=== PATIENT | male | born 1980 | race American Indian/Alaskan Native ===

== ENCOUNTER 2017-11-09 15:07 | Emergency (ER) | payer SELFPAY ==
[2017-11-09 15:23] VITALS: BP 131/89
[2017-11-09] MEDS ORDERED: CLEOCIN PO ONE (19:56)
[2017-11-09] MEDS ORDERED: MOTRIN PO ONE (19:57)
[2017-11-09] MEDS ORDERED: VEETIDS PO ONE (19:57)
[2017-11-09] MEDS ORDERED: ULTRAM PO ONE (19:57)
--- NOTE | 2017-11-09 20:01 | Emergency Department Report ---
ED General Adult HPI - General Chief complaint: Dental/Oral Stated complaint: SWOLLEN FACE Time Seen by Provider: 11/09/17 19:45 Source: patient Mode of arrival: Ambulatory Limitations: No Limitations - History of Present Illness Initial comments: Patient complains of right facial swelling and pain for the last 4-5 days. Patient states that he has a bad tooth in that region and periodically he gets swelling to the right side of his face was normally resolves on his own but this time it didn't. Patient denies headache, fever, or issues with seeing. -: Gradual Location: face, mouth Radiation: non-radiation Severity scale (0 -10): 4 Quality: aching Consistency: constant Improves with: none Worsens with: none Associated Symptoms: denies other symptoms Treatments Prior to Arrival: none - Related Data Previous Rx's Medication Instructions Recorded Last Taken Type Clindamycin [Clindamycin CAP] 150 mg PO Q8HR 7 Days #56 capsule 11/09/17 Unknown Rx Ibuprofen [Motrin] 800 mg PO Q8HR PRN #30 tablet 11/09/17 Unknown Rx Penicillin V Potassium 500 mg PO TID #30 tablet 11/09/17 Unknown Rx traMADol [Ultram] 50 mg PO Q6HR PRN #20 tablet 11/09/17 Unknown Rx Allergies Allergy/AdvReac Type Severity Reaction Status Date / Time No Known Allergies Allergy Verified 11/09/17 15:20 ED Review of Systems ROS: Stated complaint: SWOLLEN FACE Other details as noted in HPI Comment: All other systems reviewed and negative Constitutional: denies: chills, fever Eyes: denies: eye pain, eye discharge, vision change ENT: dental pain. denies: ear pain, throat pain Respiratory: denies: cough, shortness of breath, wheezing Cardiovascular: denies: chest pain, palpitations Endocrine: no symptoms reported Gastrointestinal: denies: abdominal pain, nausea, diarrhea Genitourinary: denies: urgency, dysuria Musculoskeletal: denies: back pain, joint swelling, arthralgia Skin: denies: rash, lesions Neurological: denies: headache, weakness, paresthesias Psychiatric: denies: anxiety, depression Hematological/Lymphatic: denies: easy bleeding, easy bruising ED Past Medical Hx - Past Medical History Previous Medical History?: No - Surgical History Past Surgical History?: No - Social History Smoking Status: Current Some Day Smoker Substance Use Type: None - Medications Home Medications: Home Medications Medication Instructions Recorded Confirmed Last Taken Type Clindamycin [Clindamycin CAP] 150 mg PO Q8HR 7 Days #56 capsule 11/09/17 Unknown Rx Ibuprofen [Motrin] 800 mg PO Q8HR PRN #30 tablet 11/09/17 Unknown Rx Penicillin V Potassium 500 mg PO TID #30 tablet 11/09/17 Unknown Rx traMADol [Ultram] 50 mg PO Q6HR PRN #20 tablet 11/09/17 Unknown Rx ED Physical Exam - General Limitations: No Limitations General appearance: alert, in no apparent distress - Head Head exam: Present: atraumatic, normocephalic - Eye Eye exam: Present: normal appearance - ENT ENT exam: Present: mucous membranes moist, other (patient has tenderness to palpation of the right maxillary area. There is some inflammation and swelling of that area as well. Intraorally the patient has poor dental hygiene and multiple teeth being decayed to the root) - Neck Neck exam: Present: normal inspection - Respiratory Respiratory exam: Present: normal lung sounds bilaterally. Absent: respiratory distress - Cardiovascular Cardiovascular Exam: Present: regular rate, normal rhythm. Absent: systolic murmur, diastolic murmur, rubs, gallop - GI/Abdominal GI/Abdominal exam: Present: soft, normal bowel sounds - Rectal Rectal exam: Present: deferred - Extremities Exam Extremities exam: Present: normal inspection - Back Exam Back exam: Present: normal inspection - Neurological Exam Neurological exam: Present: alert, oriented X3, CN II-XII intact, other (no entrapment of extraoccular muscles on exam). Absent: motor sensory deficit - Psychiatric Psychiatric exam: Present: normal affect, normal mood - Skin Skin exam: Present: warm, dry, intact, normal color. Absent: rash ED Course Vital Signs 11/09/17 15:20 Temperature 98.9 F Pulse Rate 86 Respiratory 16 Rate Blood Pressure 131/89 O2 Sat by Pulse 97 Oximetry ED Medical Decision Making - Medical Decision Making Discussed further workup with patient but he politely declined stating were rather try a prescription at home first and if things do not get better he will come back Critical care attestation.: If time is entered above; I have spent that time in minutes in the direct care of this critically ill patient, excluding procedure time. ED Disposition Clinical Impression: Odontalgia, Facial swelling Disposition: DC-01 TO HOME OR SELFCARE Is pt being admited?: No Does the pt Need Aspirin: No Condition: Stable Instructions: Toothache (ED) Additional Instructions: return if worse Prescriptions: Clindamycin [Clindamycin CAP] 150 mg PO Q8HR 7 Days #56 capsule Ibuprofen [Motrin] 800 mg PO Q8HR PRN #30 tablet PRN Reason: pain Penicillin V Potassium 500 mg PO TID #30 tablet traMADol [Ultram] 50 mg PO Q6HR PRN #20 tablet PRN Reason: Pain Referrals: PRIMARY CARE, [Primary Care Provider] - 3-5 Days [facility] [Outside] - 3-5 Days Time of Disposition: 20:11
== END 2017-11-09 20:30 | disposition home or self-care (01) ==
LOC: ED 15:07
DX: K08.89 Other specified disorders of teeth and supporting structures (principal); R22.0 Localized swelling, mass and lump, head; F17.200 Nicotine dependence, unspecified, uncomplicated
CPT/HCPCS: 99282

== ENCOUNTER 2017-11-11 08:48 | Emergency (ER) | payer SELFPAY ==
[2017-11-11] MEDS ORDERED: TYLENOL ONE (09:29)
[2017-11-11] MEDS ORDERED: TYLENOL PO ONE (09:31)
--- NOTE | 2017-11-11 10:59 | Emergency Department Report ---
HPI - General Chief Complaint: Skin/Abscess/Foreign Body Time Seen by Provider: 11/11/17 10:46 - HPI HPI: 37-year-old Afro-[place] male presents to the emergency department with worsening swelling of the right side of his face and lips. The patient was here on , 4 days ago, for milder but similar symptoms related to a dental infection and/or abscess. Patient was placed on penicillin VK, clindamycin, tramadol and ibuprofen. The patient wonders if he had an allergic reaction to these medications as the symptoms worsen. Looking at the previous chart, the patient did have some level of right-sided facial swelling at that time. He did not have any labs or imaging done. He denies any fever but does present with a low-grade fever here. He is a tobacco smoker. Otherwise he denies any past medical history. No recent travel or sick contacts at home. ED Past Medical Hx - Past Medical History Previous Medical History?: No - Surgical History Past Surgical History?: No - Social History Smoking Status: Current Every Day Smoker Substance Use Type: None - Medications Home Medications: Home Medications Medication Instructions Recorded Confirmed Last Taken Type Clindamycin [Clindamycin CAP] 150 mg PO Q8HR 7 Days #56 capsule 11/09/17 Unknown Rx Ibuprofen [Motrin] 800 mg PO Q8HR PRN #30 tablet 11/09/17 Unknown Rx Penicillin V Potassium 500 mg PO TID #30 tablet 11/09/17 Unknown Rx traMADol [Ultram] 50 mg PO Q6HR PRN #20 tablet 11/09/17 Unknown Rx ED Review of Systems ROS: Stated complaint: ALLERGIC TO PRESCRIPTION Other details as noted in HPI Comment: All other systems reviewed and negative Constitutional: fever. denies: chills Eyes: denies: eye pain, eye discharge, vision change ENT: dental pain, other (facial swelling). denies: throat pain Respiratory: denies: cough, shortness of breath, wheezing Cardiovascular: denies: chest pain, palpitations Gastrointestinal: denies: abdominal pain, nausea, diarrhea Genitourinary: denies: urgency, dysuria Musculoskeletal: denies: back pain, joint swelling, arthralgia Skin: other (right-sided facial swelling). denies: lesions Neurological: denies: headache, weakness, paresthesias Physical Exam - Physical Exam Vital Signs: Vital Signs 11/11/17 09:26 Temperature 100.2 F H Pulse Rate 86 Respiratory 16 Rate Blood Pressure 119/85 O2 Sat by Pulse 100 Oximetry Physical Exam: GENERAL: The patient is well-developed well-nourished. HENT: Normocephalic. Atraumatic. Patient has moist mucous membranes. There is no tonsillar hypertrophy, erythema or exudates. No drooling or trismus. The patient has diffuse poor dentition and/or rotting teeth. There is some tenderness to palpation along the right upper maxillary jaw and gum line. No visible or palpable abscess. EYES: Extraocular motions are intact. Pupils equal reactive to light bilaterally. NECK: Supple. No meningitic signs are noted. There is no adenopathy noted. CHEST/LUNGS: Clear to auscultation. There is no respiratory distress noted. HEART/CARDIOVASCULAR: Regular. There is no tachycardia. There is no murmur. ABDOMEN: Abdomen is soft, nontender. Patient has normal bowel sounds. There is no abdominal distention. SKIN: Patient has a large area of nonpitting swelling to the right side of the face including the right upper lip, over the maxillary region, the right cheek and towards the right inferior orbit. Some of this area appears indurated while the more inferior portion appears fluctuant. NEURO: The patient is awake, alert, and oriented. The patient is cooperative. The patient has no focal neurologic deficits. The patient has normal speech. MUSCULOSKELETAL: There is no tenderness or deformity. There is no limitation range of motion. There is no evidence of acute injury. ED Course Vital Signs 11/11/17 09:26 Temperature 100.2 F H Pulse Rate 86 Respiratory 16 Rate Blood Pressure 119/85 O2 Sat by Pulse 100 Oximetry - Consultations Consultation #1: Since the patient has developed a large right facial abscess along with a low- grade fever and leukocytosis, despite compliance with 2 different antibiotics, I felt the patient should be seen by either ENT or oral maxillofacial. Jose was on diversion. I spoke with Dr. Grimes, oral maxillofacial surgery, who except the patient as a transfer ER to ER to [facility] where the patient will be evaluated. 11/11/17 15:00 ED Medical Decision Making - Lab Data Result diagrams: 11/11/17 11:42 11/11/17 11:42 - Radiology Data Radiology results: report reviewed PROCEDURE: CT FACIAL BONES W CON TECHNIQUE: Computerized tomography of the facial bones and soft tissues with axial and coronal sections was performed from the cranial aspect of the frontal sinuses to the caudal portion of the mandible following the IV injection of iodinated nonionic contrast. HISTORY: right facial / dental abscess, facial swelling COMPARISON: No prior studies are available for comparison. FINDINGS: There is a peripherally enhancing fluid collection in the right face subcutaneous tissues overlying the maxilla, measuring approximately 2.7 centimeters AP x 2.9 centimeters transverse x 4.8 centimeters craniocaudal. There is evidence of extensive bilateral periodontal disease and numerous periapical abscesses bilaterally, predominantly involving the maxillary teeth. IMPRESSION: Large right facial subcutaneous abscess and extensive periodontal disease, with numerous bilateral maxillary periapical abscesses Transcribed By: [facility] Dictated By: ANDREAS WORLEY M.D. Electronically Authenticated By: ANDREAS WORLEY M.D. Signed Date/Time: 11/11/17 3569 - Medical Decision Making Patient presents with significant right-sided facial swelling including the lip and this has gotten progressively worse since he was here 2 days ago. This has occurred despite his compliance with 2 different antibiotics. He has a leukocytosis of 13,000 and a low-grade fever of 100.2F. CT scan of the face with IV contrast shows a large right-sided subcutaneous abscess as well as multiple periapical dental abscesses, worst along the maxilla. There is no obvious area for drainage from within the mouth or gumline. On top of that, I believe the patient may need more than just a needle I&D. Since we do not have ENT or oral maxillofacial, I contacted [facility] and the patient has been accepted for a ER to ER transfer by the oral maxillofacial team. Patient was given some IV antibiotics, pain medication, IV fluid. All the labs and imaging an transfer plan was discussed with the patient who understands and agrees. Patient was recently transported from the emergency department in a stable condition. - Differential Diagnosis abscess, sepsis, dentalgia, allergic reaction Critical Care Time: No Critical care attestation.: If time is entered above; I have spent that time in minutes in the direct care of this critically ill patient, excluding procedure time. ED Disposition Clinical Impression: Facial swelling, Facial abscess, Periapical abscess, Dental abscess, Poor dentition Disposition: [id number]/TX-70 ANOTHER TYPE HLTHCARE Is pt being admited?: No Condition: Fair Referrals: PRIMARY CARE, [Primary Care Provider] - 3-5 Days Time of Disposition: 15:02
[2017-11-11 12:19] LABS: BUN/Creatinine Ratio 10; Basophils % (Auto) 0.3 % (0.0-1.8); Blood Urea Nitrogen 8 mg/dL (9-20); Calcium 9.4 mg/dL (8.4-10.2); Eosinophils % (Auto) 0.2 % (0.0-4.3); Hematocrit 39.7 % (35.5-45.6); Hemolysis Index 12; Lymphocytes # (Auto) 0.8 K/mm3 (1.2-5.4); Lymphocytes % (Auto) 6.2 % (13.4-35.0); Mean Corpuscular HGB Conc 33 % (32-34); Mean Corpuscular Volume 77 fl (84-94); Monocytes # (Auto) 1.9 K/mm3 (0.0-0.8); Monocytes % (Auto) 14.2 % (0.0-7.3); Platelet Count 364 K/mm3 (140-440); Red Blood Count 5.13 M/mm3 (3.65-5.03); Red Cell Distribution Width 15.1 % (13.2-15.2)
[2017-11-11 12:25] LABS: Mean Corpuscular Hemoglobin 25 pg (28-32)
--- NOTE | 2017-11-11 13:36 | Cat Scan Report ---
FINAL REPORT PROCEDURE: CT FACIAL BONES W CON TECHNIQUE: Computerized tomography of the facial bones and soft tissues with axial and coronal sections was performed from the cranial aspect of the frontal sinuses to the caudal portion of the mandible following the IV injection of iodinated nonionic contrast. HISTORY: right facial / dental abscess, facial swelling COMPARISON: No prior studies are available for comparison. FINDINGS: There is a peripherally enhancing fluid collection in the right face subcutaneous tissues overlying the maxilla, measuring approximately 2.7 centimeters AP x 2.9 centimeters transverse x 4.8 centimeters craniocaudal. There is evidence of extensive bilateral periodontal disease and numerous periapical abscesses bilaterally, predominantly involving the maxillary teeth. IMPRESSION: Large right facial subcutaneous abscess and extensive periodontal disease, with numerous bilateral maxillary periapical abscesses
[2017-11-11] MEDS ORDERED: NACL 0.9% 1000 ML 1,000 ML IV ONE (14:33)
[2017-11-11] MEDS ORDERED: MORPHINE IV ONE (14:56)
[2017-11-11] MEDS ORDERED: VANCOMYCIN/NS 1 GM/250 ML 1 GM/250 ML BAG IV SCH (15:00)
[2017-11-11 15:13] VITALS: BP 124/78
== END 2017-11-11 15:56 | disposition other institution (70) ==
LOC: ED 08:48
DX: L02.01 Cutaneous abscess of face (principal); K04.7 Periapical abscess without sinus; F17.200 Nicotine dependence, unspecified, uncomplicated
CPT/HCPCS: 36415; 70487; 80048; 85025; 96365; 96375; 99285; J2270; J3370; J7030; Q9967